=== PATIENT | female | born 1940 | race Caucasian/White ===

== ENCOUNTER 2021-08-24 08:19 | Outpatient (CLI) | payer MEDICARE, SELFPAY ==
[2021-08-24 09:57] LABS: Influenza A QL RT-PCR Negative (Negative); Influenza B QL RT-PCR Negative (Negative); SARS-CoV-2 RNA PCR Negative (Negative)
== END 2021-08-24 08:20 | disposition home or self-care (01) ==
LOC: CHSLAB 08:22
PROVIDERS: PCP Internal Medicine; Visit Provider Internal Medicine
DX: R05.9 Cough, unspecified (principal); J02.9 Acute pharyngitis, unspecified; Z20.822 Contact with and (suspected) exposure to COVID-19
CPT/HCPCS: 87502; C9803; U0003; U0005

== ENCOUNTER 2021-08-27 07:17 | Outpatient (CLI) | payer MEDICARE, SELFPAY ==
--- NOTE | ~2021-08-27 | XR_ITS ---
EXAMINATION: XR chest 2V DATE: 08/27/2021 07:53 INDICATION: Congestive heart failure, cough TECHNIQUE: AP and lateral views of the chest are obtained. COMPARISON: 09/12/2019 FINDINGS: The lungs are free of acute opacities. Surgical staple line is noted in the right lung with some volume loss of the right hemithorax. There is no pleural effusion or pneumothorax. The cardiome diastinal silhouette is normal. There is moderate thoracic spondylosis. IMPRESSION: 1. No acute cardiopulmonary abnormality. Reviewed, dictated and finalized at location [facility] [employer]
== END 2021-08-27 07:18 | disposition home or self-care (01) ==
LOC: CHSIMG 07:20
PROVIDERS: PCP Internal Medicine; Visit Provider Internal Medicine
DX: R63.4 Abnormal weight loss (principal); E11.9 Type 2 diabetes mellitus without complications; I50.9 Heart failure, unspecified; R05.9 Cough, unspecified
CPT/HCPCS: 71046

== ENCOUNTER 2022-09-24 05:15 | Observation (INO) | payer MEDICARE, SELFPAY ==
[2022-09-24] VITALS (11 sets, daily range): BP systolic 112–133; BP diastolic 52–92; PULSE 60–121; RESP 14–24; TEMP 35.7–37.2; O2SAT 89–96; BMI 25.4
--- NOTE | ~2022-09-24 | XR_ITS ---
Portable chest x-ray Comparison: 08/27/2021 Clinical History: Cough Findings: There is minimal asymmetric haziness at the right lung base. Left lung clear. Cardiomedia stinal silhouette is stable. Bones and soft tissues are unremarkable. Impression: Minimal haziness right lung base. Correlate for pneumonia or atelectatic change. Reviewed, dictated and finalized at [facility]. TAL MACHINING COORDINATOR Impression: Minimal haziness right lung base. Correlate for pneumonia or atelectatic change .
[2022-09-24] MEDS: SODIUM CHLORIDE 0.9% IV 1,000 ML 150 ML IV CONT (05:15)
[2022-09-24 05:53] LABS: Basophils Absolute Auto 0.01 K/mm3 (0.00-0.10); Basophils Percent Auto 0.1 % (0.0-1.0); Hematocrit 41.1 % (35.0-42.0); Hemoglobin 12.8 g/dL (11.7-13.8); Immature Granulocyte Percent A 0.8 % (0.0-0.0); Lymphocytes Absolute Auto 1.09 K/mm3 (1.10-4.50); Lymphocytes Percent Auto 8.3 % (18.0-42.0); Mean Corpuscular HGB Conc 31.1 g/dL (32.0-36.0); Mean Corpuscular Hemoglobin 29.7 pg (27.0-31.0); Mean Corpuscular Volume 95.4 fL (78.0-102.0); Mean Platelet Volume 10.2 fl (9.2-11.8); Monocytes Absolute Auto 1.26 K/mm3 (0.10-0.90); Monocytes Percent Auto 9.6 % (2.0-11.0); Neutrophils Absolute Auto 10.6 K/mm3 (1.7-7.2); Neutrophils Percent Auto 81.2 % (50.0-70.0); Platelet Count Result 311 K/mm3 (150-420); Red Blood Count 4.31 M/mm3 (4.20-5.40); White Blood Count 13.1 K/mm3 (4.8-10.8)
--- NOTE | 2022-09-24 05:54 | ED.URI ---
HPI - URI/Sore Throat General Chief Complaint: Upper Respiratory Infection Stated Complaint: SOB Time Seen by Provider: 09/24/22 05:54 Source: patient, EMS and RN notes reviewed Mode of arrival: EMS Limitations: no limitations History of Present Illness MD elicited complaint: cough Onset (ago): day(s) (4) Consistency: constant Severity: moderate Description of mucous: yellow and green Able to tolerate fluids by mouth: Yes Exacerbating factors: other ( coughing) Relieving factors: nothing Associated symptoms: denies other symptoms Treatments prior to arrival: none Related Data Home Medications Medication Instructions Recorded Confirmed cefuroxime axetil 250 mg tablet 250 mg PO BID 09/24/22 09/24/22 insulin glargine 100 unit/mL 15 unit subcut HS 09/24/22 09/24/22 subcutaneous solution (Lantus U-100 Insulin) montelukast 10 mg tablet 10 mg PO HS 09/24/22 09/24/22 sotalol 80 mg tablet 40 mg PO BID 09/24/22 09/24/22 spironolactone 25 1 tablet PO DAILY 09/24/22 09/24/22 mg-hydrochlorothiazide 25 mg tablet verapamil 240 mg tablet,extended 240 mg PO DAILY 09/24/22 09/24/22 release Allergies Allergy/AdvReac Type Severity Reaction Status Date / Time amoxicillin Allergy Unknown Verified 07/31/17 14:24 chlorthalidone Allergy Unknown Verified 07/31/17 14:25 digoxin Allergy Unknown Verified 07/31/17 14:24 loratadine Allergy Unknown Verified 07/31/17 14:25 Review of Systems Review of Systems: All systems reviewed & are unremarkable except as noted in HPI and below Genitourinary: Genitourinary: Reports urinary incontinence ( dribbling) [facility] Past Medical History Medical History (Updated 09/24/22 @ 07:07 by Roshan Raymond MD) Atrial fibrillation Congestive heart failure Type 2 diabetes mellitus with insulin therapy Family History Family History (Updated 10/30/17 @ 10:33 by DOCTOR UNKNOWN) Father Family history of emphysema Social History Social History Smoking status: Never smoker Exam Const: General: no acute distress, alert and ill appearing chronically Nutritional Appearance: obese centrally obese Orientation/consciousness: patient oriented x3 Limitations: no limitations HENMT: Head: normal to inspection Ears: external ears normal Face/Nose/Sinus: Normal external nose present Face and sinus: normal facial exam Mouth: Yes moist mucous membranes Eyes: Conjunctivae: conjunctivae normal Pupils: Equal, round and reactive pupils present EOM: EOMs intact bilaterally Neck: Neck: normal visual inspection Resp: Effort & Inspection: normal respiratory effort Auscultation: rhonchi throughout Cardio: Rate: regular rate Rhythm: abnormal rhythm irregularly irregular GI: GI Palp: Yes Soft to palpation and No Tenderness to palpation present (GI) Auscultation: normal bowel sounds Back/Spine/Pelvis: Cervical Spine: cervical ROM normal Thoracic/Lumbar Spine: thoraco-lumbar ROM normal Skin: General skin exam: normal color Rashes: no rashes Neuro: General: patient oriented x3, moves all extremities, no focal motor deficits and CN's II-XI intact bilaterally Speech: normal speech Extrem: General: edema bilateral ( 1+ to mid cabezas) Psych: Mental Status: mental status grossly normal Affect: normal affect Attitude: cooperative Course Course Emergency Course: I discussed the case with Jesse Martínez APN who agreed with admission. Vital Signs Vital signs: Vital Signs Temperature 37.2 C 09/24/22 05:46 Pulse Rate 98 09/24/22 05:46 Respiratory Rate 24 H 09/24/22 05:46 Blood Pressure 132/88 09/24/22 05:46 Pulse Oximetry 89 L 09/24/22 05:46 Oxygen Delivery Room Air 09/24/22 05:46 Temperature 37.2 C 09/24/22 05:46 Pulse Rate 98 09/24/22 05:46 Respiratory Rate 24 H 09/24/22 05:46 Blood Pressure 132/88 09/24/22 05:46 Pulse Oximetry 89 L 09/24/22 05:46 Oxygen Delivery Room Air 09/24/22 05:46
[2022-09-24 05:55] LABS: Add Urine Microscopic? YES; Appearance Urine Clear (Clear); Bilirubin Urine Negative (Negative); Blood Urine Negative (Negative); Color Urine Yellow (Yellow); Glucose Urine UA Negative (Negative); Ketones Urine Negative (Negative); Leukocyte Esterase Ur Trace LEU/UL (Negative); Nitrate Urine Negative (Negative); Protein Urine 2+ (Negative)
--- NOTE | 2022-09-24 06:01 | PC.NURSE ---
SPOUSE STATES WILL NEED GET INFO FROM DR PARKS IF NOT IN CHART
[2022-09-24 06:05] LABS: RBC Urine 0-2 /hpf (0-2); Squamous Epithelial Cell Urine Few /hpf (Few)
[2022-09-24 06:06] LABS: Bacteria Urine 2+ /hpf
[2022-09-24 06:22] LABS: Alanine Aminotransferase 17 U/L (14-59); Albumin Level 2.9 g/dL (3.4-5.0); Alkaline Phosphatase 49 U/L (46-116); Anion Gap 2 mmol/L (8-16); Aspartate Amino Transferase 14 U/L (15-37); Bilirubin,Total 0.9 mg/dL (0.00-1.00); Blood Urea Nitrogen 45 mg/dL (7-18); Calcium 8.5 mg/dL (8.5-10.1); Carbon Dioxide 35 mmol/L (21-32); Chloride 101 mmol/L (98-108); Estimated CRCL calculation 28 ml/min; Estimated Glomerular Filt Rate 44; Glucose 163 mg/dL (70-99); Osmolality Calculated 301 mOsm/kg (285-295); Potassium 4.1 mmol/L (3.5-5.1); Sodium 138 mmol/L (136-145); Total Protein 7.8 g/dL (6.4-8.2)
[2022-09-24 06:23] LABS: NT Pro B Type Natriuretic Pept 2806 pg/mL (0-450)
[2022-09-24 06:33] LABS: Influenza A QL RT-PCR Positive (Negative); Influenza B QL RT-PCR Negative (Negative); SARS-CoV-2 RNA PCR Negative (Negative)
[2022-09-24 06:35] LABS: RSV RNA, RT-PCR Negative (Negative)
[2022-09-24 08:14] LABS: Basophils Absolute Auto 0.01 K/mm3 (0.00-0.10); Basophils Percent Auto 0.1 % (0.0-1.0); Hematocrit 41.7 % (35.0-42.0); Hemoglobin 13.2 g/dL (11.7-13.8); Immature Granulocyte Absolute 0.07 K/mm3 (0.00-0.00); Immature Granulocyte Percent A 0.5 % (0.0-0.0); Lymphocytes Absolute Auto 1.03 K/mm3 (1.10-4.50); Mean Corpuscular HGB Conc 31.7 g/dL (32.0-36.0); Mean Corpuscular Hemoglobin 30.3 pg (27.0-31.0); Mean Corpuscular Volume 95.9 fL (78.0-102.0); Mean Platelet Volume 10.5 fl (9.2-11.8); Monocytes Absolute Auto 1.35 K/mm3 (0.10-0.90); Monocytes Percent Auto 9.2 % (2.0-11.0); Neutrophils Absolute Auto 12.2 K/mm3 (1.7-7.2); Neutrophils Percent Auto 83.2 % (50.0-70.0); Platelet Count Result 306 K/mm3 (150-420); Red Blood Count 4.35 M/mm3 (4.20-5.40); Red Cell Distribution Width 13.1 % (11.6-14.4); White Blood Count 14.7 K/mm3 (4.8-10.8)
[2022-09-24 08:27] LABS: Anion Gap 3 mmol/L (8-16); Blood Urea Nitrogen 43 mg/dL (7-18); Calcium 8.7 mg/dL (8.5-10.1); Carbon Dioxide 36 mmol/L (21-32); Chloride 100 mmol/L (98-108); Estimated CRCL calculation 29 ml/min; Estimated Glomerular Filt Rate 46; Glucose 151 mg/dL (70-99); Osmolality Calculated 301 mOsm/kg (285-295); Potassium 3.8 mmol/L (3.5-5.1); Sodium 139 mmol/L (136-145)
--- NOTE | 2022-09-24 08:45 | PC.NURSE ---
Pt to room 209 per stretcher with cardiac monitor technician. To bed with moderate assist of 2. Patel draining clear, so urine. O2 on at 2L. Pt A&Ox3. States she's weak and hasn't been eating the last few days. States she isn't hungry. NPC noted, lungs diminished. Pt denies pain or SOB. Skin intact, coccyx reddened. Oriented to room. Reminded to call with needs and not to get up without assist. Call stoner in reach. Bed rails up x3.
[2022-09-24] MEDS: FUROSEMIDE INJ 40 MG/4 ML VIAL IV PUSH (09:30)
[2022-09-24] MEDS: hydroCHLOROthiazide 25 MG TABLET PO (09:30)
[2022-09-24] MEDS: VERAPAMIL HCL ER 120 MG TABLET 240 MG PO (09:30)
[2022-09-24] MEDS: SPIRONOLACTONE 25 MG TABLET PO (09:30)
[2022-09-24] MEDS: SOTALOL HCL 40 MG TABLET PO ×2 (09:30→21:12)
--- NOTE | 2022-09-24 10:23 | PC.NURSE ---
Physical therapy working with patient.
[2022-09-24 11:51] LABS: Glucose Point of Care 344 mg/dl (65-105)
--- NOTE | 2022-09-24 16:18 | PC.NURSE ---
Patient in bed with HOB elevated. No resp distress or c/o pain observed. Patient spoke on phone to daughter. Patient requested pudding on her supper tray. Dietary notifie.
[2022-09-24 16:28] LABS: Glucose Point of Care 159 mg/dl (65-105)
--- NOTE | 2022-09-24 16:35 | PC.NURSE ---
Bedside glucose 159, no sliding scale insulin needed.
[2022-09-24 21:05] LABS: Glucose Point of Care 140 mg/dl (65-105)
[2022-09-24] MEDS: INSULIN GLARGINE (*BKC) 100 UNITS/ML 15 UNITS SUB-Q (21:10)
[2022-09-24] MEDS: MONTELUKAST SODIUM 10 MG TABLET PO (21:11)
--- NOTE | 2022-09-24 21:58 | PC.NURSE ---
HS care completed. Patient positioned in bed, refused to turn to either side. Buttocks and abd folds cleaned and creams put on appropriate areas. Able to take medications without difficulty. Patient encouraged to take a few more sips of water after medication was taken. Patel care provided and cath emptied. IV site to right arm without redness, swelling, drainage. Dressing over insertion site clean, dry, intact. HOB elevated and knees elevated. Patient has no signs of resp distress or pain. O2 @ 2LPM/NC intact. Patient removes at times and nurse reminds to leave on. Patient instructed on bedside glucose monitoring and sliding scale insulin. Patient also instructed on Influenza A. Patient remains on isolation for influenza.
[2022-09-24] MEDS: SODIUM CHLORIDE 0.9% IV 1,000 ML 100 ML IV CONT (22:30)
[2022-09-25] VITALS (10 sets, daily range): BP systolic 108–126; BP diastolic 50–75; PULSE 69–100; RESP 16–20; TEMP 36.1–36.6; O2SAT 91–97
--- NOTE | 2022-09-25 00:15 | PC.NURSE ---
Pt resting quietly in bed and IV fluid continues to infuse as ordered. Patel is patent and draining clear, so urine and oxygen remains on at 2 liters per nasal cannula. SAO2 is 96% and pt doesnt voice any c/o shortness of breath. No signs of respiratory distress noted.
--- NOTE | 2022-09-25 02:19 | PC.NURSE ---
Pt dozing quietly; no signs of respiratory distress noted.
--- NOTE | 2022-09-25 03:10 | PC.NURSE ---
Pt called and asked to be repositioned. Pt repositioned to comfort.
--- NOTE | 2022-09-25 04:04 | PC.NURSE ---
Pt positioned to comfort; IV fluid continues to infuse as ordered.
[2022-09-25 05:26] LABS: Hematocrit 39.9 % (35.0-42.0); Hemoglobin 12.4 g/dL (11.7-13.8); Mean Corpuscular HGB Conc 31.1 g/dL (32.0-36.0); Mean Corpuscular Hemoglobin 30.2 pg (27.0-31.0); Mean Corpuscular Volume 97.3 fL (78.0-102.0); Mean Platelet Volume 10.5 fl (9.2-11.8); Platelet Count Result 260 K/mm3 (150-420); Red Cell Distribution Width 13.1 % (11.6-14.4); White Blood Count 12.5 K/mm3 (4.8-10.8)
[2022-09-25 05:35] LABS: Anion Gap 2 mmol/L (8-16); Blood Urea Nitrogen 32 mg/dL (7-18); Calcium 8.4 mg/dL (8.5-10.1); Carbon Dioxide 38 mmol/L (21-32); Chloride 101 mmol/L (98-108); Estimated CRCL calculation 29 ml/min; Estimated Glomerular Filt Rate 48; Glucose 112 mg/dL (70-99); Osmolality Calculated 299 mOsm/kg (285-295); Potassium 3.4 mmol/L (3.5-5.1); Sodium 141 mmol/L (136-145)
--- NOTE | 2022-09-25 06:29 | PC.NURSE ---
Pt assisted with positioning to comfort.
[2022-09-25] MEDS: SODIUM CHLORIDE 0.9% IV 1,000 ML 100 ML IV CONT ×2 (08:16→19:44)
[2022-09-25] MEDS: FUROSEMIDE INJ 20 MG/2 ML VIAL IV PUSH (08:59)
[2022-09-25] MEDS: hydroCHLOROthiazide 25 MG TABLET PO (09:00)
[2022-09-25] MEDS: VERAPAMIL HCL ER 120 MG TABLET 240 MG PO (09:00)
[2022-09-25] MEDS: SPIRONOLACTONE 25 MG TABLET PO (09:00)
[2022-09-25] MEDS: SOTALOL HCL 40 MG TABLET PO ×2 (09:00→20:04)
[2022-09-25] MEDS: POTASSIUM CHLORIDE 10 MEQ TABLET PO (09:02)
[2022-09-25 11:48] LABS: Glucose Point of Care 420 mg/dl (65-105)
--- NOTE | 2022-09-25 15:09 | PM.IMHP ---
H&P: HPI History of Present Illness Date/Time: 09/25/22 0900 Chief Complaint: shortness of breath Narrative: This is a 82-year-old female who presented to the hospital with 4 days of coughing up yellow-greenish sputum not feeling very well filling short of breath was found to be satting 89% on room air with a respiratory rate of 24 heart rate of 98 patient was found to have some pneumonia as well as influenza. Patient has a past medical history of hypokalemia congestive heart failure, hyponatremia patient required some oxygen at 2 L which brought her up to 94% she was started on azithromycin and Rocephin for urinary tract infection as well patient has been feeling weak has not been eating has not gotten out of bed and she normally is cyst herself her was unable to get her up off the couch at this time feels like she needs some therapy visit not able to take care of her at thistime. Patient's labs was glucose 163, potassium 4.1, sodium 138, BUN 45, creatinine 1.18, hemoglobin 14, platelets 306 patient was also started on some IV fluids for some dehydration. Review of Systems Review of Systems: weakness, failure to thrive, Shortness of breath All systems reviewed & are unremarkable except as noted in HPI and below PMFSH Past Medical History Medical History (Updated 09/30/22 @ 09:50 by Shira Martínez NP) Atrial fibrillation Congestive heart failure Hypokalemia Hyponatremia Malaise and fatigue Type 2 diabetes mellitus with insulin therapy Weakness Family History Family History Father Family history of emphysema Social History Social History Smoking status: Never smoker Second hand tobacco smoke exposure: No Alcohol intake: never Substance use: never Substance use type: does not use Lack of Transportation: No Lack of Food: Never True Current Housing: I Have Housing Concerned About Future Housing: No Difficulty Paying Gas/Electric Bills: No Difficulty Paying for Meds: No Currently Unemployed: No Education: Grade School Difficulty w/ Childcare or Family Care: No Gender identity (if verbalized by the patient): Female Sexual Orientation (if Verbalized by the Patient): Straight or Heterosexual Spiritual care concerns: No Meds Home Medications and Allergies Home Medications Medication Instructions Recorded Confirmed Type cefuroxime axetil 250 mg tablet 250 mg PO BID 09/24/22 09/24/22 History insulin glargine 100 unit/mL 15 unit subcut HS 09/24/22 09/24/22 History subcutaneous solution (Lantus U-100 Insulin) montelukast 10 mg tablet 10 mg PO HS 09/24/22 09/24/22 History sotalol 80 mg tablet 40 mg PO BID 09/24/22 09/24/22 History spironolactone 25 1 tablet PO DAILY 09/24/22 09/24/22 History mg-hydrochlorothiazide 25 mg tablet verapamil 240 mg tablet,extended 240 mg PO DAILY 09/24/22 09/24/22 History release Allergies Allergy/AdvReac Type Severity Reaction Status Date / Time amoxicillin Allergy Unknown Verified 07/31/17 14:24 chlorthalidone Allergy Unknown Verified 07/31/17 14:25 digoxin Allergy Unknown Verified 07/31/17 14:24 loratadine Allergy Unknown Verified 07/31/17 14:25 Vital Signs Vital Signs - 24 hr 09/24/22 16:00 09/24/22 21:12 09/24/22 20:00 Temperature 97.9 F 97.4 F L Pulse Rate 60 62 88 Respiratory Rate 14 Blood Pressure 120/59 L 124/71 Pulse Oximetry 90 91 Oxygen Delivery Nasal Cannula Nasal Cannula Oxygen Flow Rate 2 2 09/25/22 00:00 09/25/22 04:00 09/25/22 09:00 Temperature 97.6 F 97.0 F L Pulse Rate 80 92 100 Respiratory Rate 20 20 Blood Pressure 126/72 113/75 Pulse Oximetry 96 95 Oxygen Delivery Nasal Cannula Nasal Cannula Oxygen Flow Rate 2 2 09/25/22 08:00 09/25/22 12:00 Temperature 96.9 F L 98 F Pulse Rate 100 82 Respiratory Rate 17 17 Blood Pressure 115/50 L 120/54 L Pulse Ox
[2022-09-25] MEDS: BENZONATATE 100 MG CAPSULE PO ×2 (17:11→21:33)
[2022-09-25] MEDS: DEXTROSE 50% 25 GM/50 ML SYRINGE IV PUSH (17:14)
[2022-09-25 17:16] LABS: Glucose Point of Care 37 mg/dl (65-105)
[2022-09-25 17:39] LABS: Glucose Point of Care 116 mg/dl (65-105)
[2022-09-25] MEDS: MONTELUKAST SODIUM 10 MG TABLET PO (20:04)
[2022-09-25] MEDS: INSULIN GLARGINE (*BKC) 100 UNITS/ML 15 UNITS SUB-Q (20:07)
[2022-09-25 20:08] LABS: Glucose Point of Care 200 mg/dl (65-105)
[2022-09-26 05:17] LABS: Hematocrit 36.6 % (35.0-42.0); Hemoglobin 10.9 g/dL (11.7-13.8); Mean Corpuscular HGB Conc 29.8 g/dL (32.0-36.0); Mean Corpuscular Hemoglobin 28.7 pg (27.0-31.0); Mean Corpuscular Volume 96.3 fL (78.0-102.0); Mean Platelet Volume 10.2 fl (9.2-11.8); Platelet Count Result 216 K/mm3 (150-420); Red Cell Distribution Width 13.1 % (11.6-14.4)
[2022-09-26 05:33] LABS: Anion Gap 2 mmol/L (8-16); Blood Urea Nitrogen 22 mg/dL (7-18); Calcium 7.8 mg/dL (8.5-10.1); Carbon Dioxide 37 mmol/L (21-32); Chloride 98 mmol/L (98-108); Estimated CRCL calculation 34 ml/min; Estimated Glomerular Filt Rate 57; Glucose 91 mg/dL (70-99); Osmolality Calculated 287 mOsm/kg (285-295); Potassium 3.4 mmol/L (3.5-5.1); Sodium 137 mmol/L (136-145)
[2022-09-26] MEDS: BENZONATATE 100 MG CAPSULE PO ×3 (05:33→21:33)
[2022-09-26] MEDS: SODIUM CHLORIDE 0.9% IV 1,000 ML 100 ML IV CONT ×2 (05:36→17:57)
[2022-09-26 06:49] VITALS: O2SAT 94
[2022-09-26 08:00] VITALS: BP 101/38; PULSE 102; RESP 17; TEMP 35.8; O2SAT 94
[2022-09-26 08:30] VITALS: O2SAT 92
[2022-09-26] MEDS: SPIRONOLACTONE 25 MG TABLET PO (09:28)
[2022-09-26] MEDS: VERAPAMIL HCL ER 120 MG TABLET 240 MG PO (09:28)
[2022-09-26] MEDS: POTASSIUM CHLORIDE 10 MEQ TABLET PO (09:28)
[2022-09-26] MEDS: hydroCHLOROthiazide 25 MG TABLET PO (09:28)
[2022-09-26 09:29] VITALS: PULSE 102
[2022-09-26] MEDS: FUROSEMIDE INJ 20 MG/2 ML VIAL IV PUSH (09:29)
[2022-09-26] MEDS: SOTALOL HCL 40 MG TABLET PO ×2 (09:29→21:33)
--- NOTE | 2022-09-26 12:00 | PC.NURSE ---
Pt requested to be set up in the bed and pillow adjusted. This nurse encouraged pt to adjust her own pillow and she did so with reluctance. Pt was asked about getting up in the chair this afternoon and she responded with I don't feel like it, I will start getting up when I feel better. Pt was educated on lack of mobility and respiratory issues along with mobility issues.
[2022-09-26 12:03] LABS: Glucose Point of Care 366 mg/dl (65-105)
--- NOTE | 2022-09-26 14:07 | WPDPN ---
Progress Note: A&P Assessment and Plan (1) Hypoxia: Code(s): R09.02 - Hypoxemia Status: Acute Assessment and Plan: oxygen per nc mointor pulse ox (2) Influenza A: Code(s): J10.1 - Influenza due to other identified influenza virus with other respiratory manifestations Status: Acute Assessment and Plan: weakness PT/OT IV steroids Tamiflu not indicated (3) Acute UTI: Code(s): N39.0 - Urinary tract infection, site not specified Status: Acute Assessment and Plan: IV anibiotic IVF Patel catheter adequate intake and output (4) Hypokalemia: Code(s): E87.6 - Hypokalemia Status: Acute Assessment and Plan: Monitor and replenish electrolytes (5) Pain initiated by coughing: Code(s): R52 - Pain, unspecified Status: Acute Assessment and Plan: Continue to monitor for pain PRn pain medicatin Subjective Date/time seen: 09/26/22 14:07 Interval history: Patient is eating slightly better but not very active or able to get out of bed due to lethargy . Patient still remains on oxygen and discussion has been made about going to assisted at this time as patient is not able to be cared for at home due to illness. Exam Narrative: GENERALPale-appearing, well-nourished, and in no acute distress. HEAD:Normocephalic, atraumatic. EYES: PERRLA and EOMI. ENT: Nares clear, no rhinorrhea or epistaxis. Mucous membranes moist. CHEST: Clear to dimished auscultation. No respiratory distress. HEART: Regular rate and rhythm. Normal peripheral pulses. ABDOMEN: Soft, nontender, nondistended, normal active bowel sounds. EXTREMITIES: Normal range of motion. No edema. weak SKIN: Warm, dry, no rash. NEURO: No focal deficits. Alert and oriented x3. Objective Data Vital Signs Vital Signs: Vital Signs - 24 hr 09/25/22 16:00 09/25/22 20:04 09/25/22 20:00 Temperature 97.8 F Pulse Rate 88 69 69 Respiratory Rate 18 18 Blood Pressure 108/51 L Pulse Oximetry 92 92 Oxygen Delivery Nasal Cannula Nasal Cannula Oxygen Flow Rate 2 2 09/25/22 20:00 09/25/22 23:53 09/26/22 09:29 Temperature 97.6 F 97.6 F Pulse Rate 69 69 102 H Respiratory Rate 16 16 Blood Pressure 113/63 113/63 Pulse Oximetry 97 97 Oxygen Delivery Nasal Cannula Nasal Cannula Oxygen Flow Rate 2 2 09/26/22 08:00 09/26/22 08:30 09/26/22 08:00 Temperature 96.4 F L Pulse Rate 102 H Respiratory Rate 17 Blood Pressure 101/38 L Pulse Oximetry 94 92 94 Oxygen Delivery Nasal Cannula Nasal Cannula Nasal Cannula Oxygen Flow Rate 2 1 2 Intake/Output Intake/Output: Intake & Output 09/23/22 09/24/22 09/25/22 09/26/22 23:59 23:59 23:59 23:59 Intake Total 1705 3256.667 2030 Output Total 3125 1025 350 Balance -1420 2231.667 1680 Meds/Results Medications: Active Medications Generic Name Dose Route Start Last Admin Trade Name Freq PRN Reason Stop Dose Admin Acetaminophen 650 mg 09/24/22 07:45 Acetaminophen 325 Mg Tablet PO Q4H PRN Mild Pain (1-3) or Fever Hydrocodone Bitart/Acetaminophen 1 tab 09/24/22 07:45 Hydrocodone/Acetaminophen (*Crx) 5-325 Mg Tablet PO Q4H PRN Moderate Pain (4-6) Benzonatate 100 mg 09/25/22 22:00 09/26/22 05:33 Benzonatate 100 Mg Capsule PO 100 mg Q8HR FRANDY Administration Dextrose 12.5 gm 09/24/22 09:40 09/25/22 17:14 Dextrose 50% 25 Gm/50 Ml Syringe IV PUSH 12.5 gm PRN PRN Administration Hypoglycemia Protocol Furosemide 20 mg 09/25/22 09:00 09/26/22 09:29 Furosemide Inj 20 Mg/2 Ml Vial IV PUSH 20 mg DAILY FRANDY Administration Glucagon 1 mg 09/24/22 09:40 Glucagon For Inj 1 Mg Vial IM PRN PRN Hypoglycemia Protocol Glucose 15 gm 09/24/22 09:40 Glucose Oral Gel 15 Gm Of Glucse In 37.5 Gm Tube PO PRN PRN Hypoglycemia Protocol Hydrochlorothiazide 25 mg 09/24/22 09:00 09/26/22 09:
[2022-09-26 16:00] VITALS: BP 124/81; PULSE 80; RESP 17; TEMP 36.6; O2SAT 94
--- NOTE | 2022-09-26 16:25 | PC.NURSE ---
Report given to Amina at [facility].
[2022-09-26 17:04] LABS: Glucose Point of Care 71 mg/dl (65-105)
[2022-09-26 21:08] LABS: Glucose Point of Care 99 mg/dl (65-105)
[2022-09-26 21:33] VITALS: PULSE 74
[2022-09-26] MEDS: MONTELUKAST SODIUM 10 MG TABLET PO (21:33)
[2022-09-27] VITALS (9 sets, daily range): BP systolic 107–126; BP diastolic 58–80; PULSE 61–107; RESP 16–18; TEMP 36.3–36.4; O2SAT 87–96
[2022-09-27] MEDS: SODIUM CHLORIDE 0.9% IV 1,000 ML 100 ML IV CONT (02:55)
[2022-09-27 05:28] LABS: Hemoglobin 11.1 g/dL (11.7-13.8); Mean Corpuscular HGB Conc 30.8 g/dL (32.0-36.0); Mean Corpuscular Hemoglobin 29.8 pg (27.0-31.0); Mean Corpuscular Volume 96.5 fL (78.0-102.0); Mean Platelet Volume 10.4 fl (9.2-11.8); Platelet Count Result 226 K/mm3 (150-420); Red Blood Count 3.73 M/mm3 (4.20-5.40); Red Cell Distribution Width 13.2 % (11.6-14.4); White Blood Count 8.6 K/mm3 (4.8-10.8)
[2022-09-27 05:41] LABS: Anion Gap 3 mmol/L (8-16); Blood Urea Nitrogen 14 mg/dL (7-18); Calcium 7.6 mg/dL (8.5-10.1); Carbon Dioxide 34 mmol/L (21-32); Chloride 100 mmol/L (98-108); Estimated CRCL calculation 37 ml/min; Estimated Glomerular Filt Rate > 60; Glucose 84 mg/dL (70-99); Osmolality Calculated 283 mOsm/kg (285-295); Potassium 3.5 mmol/L (3.5-5.1); Sodium 137 mmol/L (136-145)
[2022-09-27] MEDS: BENZONATATE 100 MG CAPSULE PO ×3 (06:37→20:58)
[2022-09-27] MEDS: FUROSEMIDE INJ 20 MG/2 ML VIAL IV PUSH (07:59)
[2022-09-27 08:03] LABS: Glucose Point of Care 83 mg/dl (65-105)
[2022-09-27] MEDS: SOTALOL HCL 40 MG TABLET PO ×2 (08:15→20:58)
[2022-09-27] MEDS: POTASSIUM CHLORIDE 10 MEQ TABLET PO (08:15)
[2022-09-27] MEDS: hydroCHLOROthiazide 25 MG TABLET PO (08:15)
[2022-09-27] MEDS: VERAPAMIL HCL ER 120 MG TABLET 240 MG PO (08:15)
[2022-09-27] MEDS: SPIRONOLACTONE 25 MG TABLET PO (08:15)
--- NOTE | 2022-09-27 09:47 | WPDPN ---
Progress Note: A&P Assessment and Plan (1) Hypoxia: Code(s): R09.02 - Hypoxemia Status: Acute Assessment and Plan: oxygen per nc mointor pulse ox denies shortness of breath Wean from oxygen (2) Influenza A: Code(s): J10.1 - Influenza due to other identified influenza virus with other respiratory manifestations Status: Acute Assessment and Plan: weakness PT/OT IV steroids Tamiflu not indicated onset to long ago (3) Acute UTI: Code(s): N39.0 - Urinary tract infection, site not specified Status: Acute Assessment and Plan: IV anibiotic IVF Patel catheter adequate intake and output DC IVF DC IV antibiotics today this is day 4 (4) Hypokalemia: Code(s): E87.6 - Hypokalemia Status: Acute Assessment and Plan: Monitor and replenish electrolytes resolved (5) Pain initiated by coughing: Code(s): R52 - Pain, unspecified Status: Acute Assessment and Plan: Continue to monitor for pain PRn pain medicatin (6) Weakness: Code(s): R53.1 - Weakness Status: Acute Assessment and Plan: PT/OT evaluate and treat refuses to get out of bed (7) Malaise and fatigue: Code(s): R53.81 - Other malaise; R53.83 - Other fatigue Status: Acute Assessment and Plan: Refuses to get out of bed questioned patient on depression in which she denies may be lingering from influenza. Subjective Date/time seen: 09/27/22 09:47 Interval history: Patient continues to refuse to get out of bed and informed me she has been doing bed exercises but is to weak to get out of bed. I discussed having therapy help but she continues to refuse and decline assistance. Patient is eating a lot better and drinking I will discontinue IV fluids plan continue with oral intake and we will plan for her to go to correction on Thursday. I did discuss with patient that she would need to go to correction if she continued to refuse to participate with therapy. Patient informed me that she could not get up due to pain and the nurse walks in while I was in the room and patient denies having pain. When asked about the pain I remind her of what she informed me of and she states that her legs feel heavy and she is not in need of pain medication Exam Narrative: GENERALPale-appearing, well-nourished, and in no acute distress. HEAD:Normocephalic, atraumatic. EYES: PERRLA and EOMI. ENT: Nares clear, no rhinorrhea or epistaxis. Mucous membranes moist. CHEST: Clear to dimished auscultation. No respiratory distress. HEART: Regular rate and rhythm. Normal peripheral pulses. ABDOMEN: Soft, nontender, nondistended, normal active bowel sounds. EXTREMITIES: Normal range of motion. No edema. weak SKIN: Warm, dry, no rash. NEURO: No focal deficits. Alert and oriented x3. Objective Data Vital Signs Vital Signs: Vital Signs - 24 hr 09/26/22 16:00 09/26/22 21:33 09/27/22 00:00 Temperature 98 F 97.3 F L Pulse Rate 80 74 61 Respiratory Rate 17 18 Blood Pressure 124/81 126/58 L Pulse Oximetry 94 93 Oxygen Delivery Nasal Cannula High Flow Nasal Cannula Oxygen Flow Rate 1 1 09/27/22 08:00 09/27/22 08:15 Temperature 97.6 F Pulse Rate 71 76 Respiratory Rate 16 Blood Pressure 107/80 Pulse Oximetry 96 Oxygen Delivery Nasal Cannula Oxygen Flow Rate 1 Intake/Output Intake/Output: Intake & Output 09/24/22 09/25/22 09/26/22 09/27/22 23:59 23:59 23:59 23:59 Intake Total 1705 3256.667 3430 1336.667 Output Total 3125 1025 1650 475 Balance -1420 2231.667 1780 861.667 Meds/Results Medications: Active Medications Generic Name Dose Route Start Last Admin Trade Name Freq PRN Reason Stop Dose Admin Acetaminophen 650 mg 09/24/22 07:45 Acetaminophen 325 Mg Tablet PO Q4H PRN Mild Pain (1-3) or Fever Hydrocodone Bitart/Acetaminophen 1 tab 09/24/22 07:45 Hydrocodone/Acetaminophen (*Crx) 5-325
--- NOTE | 2022-09-27 09:56 | PC.NURSE ---
TRAY FILLER discontinued fluids
--- NOTE | 2022-09-27 11:37 | PC.NURSE ---
patient on room air for approximately 2hours. Up to bedside commode during that time. Patient requested 02 be put on. SPO2 87% and pulse 107. Put back on 1 liter. SPO2 up to 91% and HR down to 85
[2022-09-27 11:54] LABS: Glucose Point of Care 245 mg/dl (65-105)
[2022-09-27 16:48] LABS: Glucose Point of Care 118 mg/dl (65-105)
[2022-09-27] MEDS: MONTELUKAST SODIUM 10 MG TABLET PO (20:58)
[2022-09-27] MEDS: INSULIN GLARGINE (*BKC) 100 UNITS/ML 15 UNITS SUB-Q (21:01)
[2022-09-27 21:03] LABS: Glucose Point of Care 111 mg/dl (65-105)
[2022-09-28] VITALS (8 sets, daily range): BP systolic 108–128; BP diastolic 57–77; PULSE 78–98; RESP 16; TEMP 36.2–36.6; O2SAT 94–95
[2022-09-28] MEDS: BENZONATATE 100 MG CAPSULE PO ×3 (05:25→21:06)
[2022-09-28 07:41] LABS: Glucose Point of Care 77 mg/dl (65-105)
[2022-09-28] MEDS: FUROSEMIDE INJ 20 MG/2 ML VIAL IV PUSH (08:18)
[2022-09-28] MEDS: SOTALOL HCL 40 MG TABLET PO ×2 (08:19→21:06)
[2022-09-28] MEDS: POTASSIUM CHLORIDE 10 MEQ TABLET PO (08:20)
[2022-09-28] MEDS: SPIRONOLACTONE 25 MG TABLET PO (08:21)
[2022-09-28] MEDS: hydroCHLOROthiazide 25 MG TABLET PO (08:21)
[2022-09-28] MEDS: VERAPAMIL HCL ER 120 MG TABLET 240 MG PO (08:22)
--- NOTE | 2022-09-28 11:22 | WPDPN ---
Progress Note: A&P Assessment and Plan (1) Hypoxia: Code(s): R09.02 - Hypoxemia Status: Acute Assessment and Plan: oxygen per nc mointor pulse ox denies shortness of breath Wean from oxygen (2) Influenza A: Code(s): J10.1 - Influenza due to other identified influenza virus with other respiratory manifestations Status: Acute Assessment and Plan: weakness PT/OT IV steroids Tamiflu not indicated onset to long ago (3) Acute UTI: Code(s): N39.0 - Urinary tract infection, site not specified Status: Acute Assessment and Plan: IV anibiotic IVF Patel catheter adequate intake and output DC IVF DC IV antibiotics today this is day 4 (4) Hypokalemia: Code(s): E87.6 - Hypokalemia Status: Acute Assessment and Plan: Monitor and replenish electrolytes resolved (5) Pain initiated by coughing: Code(s): R52 - Pain, unspecified Status: Acute Assessment and Plan: Continue to monitor for pain PRn pain medicatin (6) Weakness: Code(s): R53.1 - Weakness Status: Acute Assessment and Plan: PT/OT evaluate and treat refuses to get out of bed (7) Malaise and fatigue: Code(s): R53.81 - Other malaise; R53.83 - Other fatigue Status: Acute Assessment and Plan: Refuses to get out of bed questioned patient on depression in which she denies may be lingering from influenza. Subjective Date/time seen: 09/28/22 11:22 Interval history: Patient got up to bedside commode yesterday after a long conversation she remains on nasal cannula as she does drop at time and when she falls asleep. Patient will try and get up today although she is not happy. Today is the last day of her IV antibiotics and the plan is to swing and or go to jail in the morning ,WEan from oxygen as well Exam Narrative: GENERALPale-appearing, well-nourished, and in no acute distress. HEAD:Normocephalic, atraumatic. EYES: PERRLA and EOMI. ENT: Nares clear, no rhinorrhea or epistaxis. Mucous membranes moist. CHEST: Clear to diminished auscultation. No respiratory distress. HEART: Regular rate and rhythm. Normal peripheral pulses. ABDOMEN: Soft, nontender, nondistended, normal active bowel sounds. EXTREMITIES: Normal range of motion. No edema. weak SKIN: Warm, dry, no rash. cyst noted on head multiple NEURO: No focal deficits. Alert and oriented x3. Objective Data Vital Signs Vital Signs: Vital Signs - 24 hr 09/27/22 11:36 09/27/22 11:39 09/27/22 16:00 Temperature 97.4 F L Pulse Rate 107 H 85 78 Respiratory Rate 16 Blood Pressure 107/71 Pulse Oximetry 87 L 91 96 Oxygen Delivery Room Air High Flow Nasal Cannula Nasal Cannula Oxygen Flow Rate 1 1 09/27/22 19:43 09/27/22 20:58 09/28/22 00:00 Temperature 97.4 F L Pulse Rate 78 85 85 Respiratory Rate 16 16 Blood Pressure 108/62 Pulse Oximetry 96 94 Oxygen Delivery Nasal Cannula Nasal Cannula Oxygen Flow Rate 2 2 09/28/22 07:42 09/28/22 08:19 Temperature 97.1 F L Pulse Rate 98 78 Respiratory Rate 16 Blood Pressure 128/57 L Pulse Oximetry 94 Oxygen Delivery Nasal Cannula Oxygen Flow Rate 1 Intake/Output Intake/Output: Intake & Output 09/25/22 09/26/22 09/27/22 09/28/22 23:59 23:59 23:59 23:59 Intake Total 3256.667 3430 2996.667 720 Output Total 1025 1650 2475 600 Balance 2231.667 1780 521.667 120 Meds/Results Medications: Active Medications Generic Name Dose Route Start Last Admin Trade Name Freq PRN Reason Stop Dose Admin Acetaminophen 650 mg 09/24/22 07:45 Acetaminophen 325 Mg Tablet PO Q4H PRN Mild Pain (1-3) or Fever Hydrocodone Bitart/Acetaminophen 1 tab 09/24/22 07:45 Hydrocodone/Acetaminophen (*Crx) 5-325 Mg Tablet PO Q4H PRN Moderate Pain (4-6) Benzonatate 100 mg 09/25/22 22:00 09/28/22 05:25 Benzonatate 100 Mg Capsule PO 100 mg Q8HR FRANDY Adminis
[2022-09-28 11:56] LABS: Glucose Point of Care 257 mg/dl (65-105)
[2022-09-28 17:06] LABS: Glucose Point of Care 121 mg/dl (65-105)
[2022-09-28] MEDS: MONTELUKAST SODIUM 10 MG TABLET PO (21:06)
[2022-09-28] MEDS: INSULIN GLARGINE (*BKC) 100 UNITS/ML 15 UNITS SUB-Q (21:10)
[2022-09-28 21:11] LABS: Glucose Point of Care 129 mg/dl (65-105)
[2022-09-29] MEDS: BENZONATATE 100 MG CAPSULE PO (05:40)
[2022-09-29 05:56] VITALS: O2SAT 94
--- NOTE | 2022-09-29 06:12 | PC.NURSE ---
Pt states she feels like her AM Tessalon amber is stuck in her throat. SPO2 at 97% on 1L/NC. Pt able to eat 4 oz of pudding, and is drinking fluids without difficulty, still states she feels the pill is stuck. Conference Interpreter reassured her that her O2 levels were good and pill was not blocking airway, pill may be stuck in esophagus if at all. Pt states understanding.
[2022-09-29 07:20] VITALS: BP 135/62; PULSE 92; RESP 20; TEMP 36.1; O2SAT 93
[2022-09-29 08:15] LABS: Glucose Point of Care 140 mg/dl (65-105)
[2022-09-29 09:09] VITALS: PULSE 92
[2022-09-29] MEDS: POTASSIUM CHLORIDE 10 MEQ TABLET PO (09:09)
[2022-09-29] MEDS: hydroCHLOROthiazide 25 MG TABLET PO (09:09)
[2022-09-29] MEDS: VERAPAMIL HCL ER 120 MG TABLET 240 MG PO (09:09)
[2022-09-29] MEDS: FUROSEMIDE INJ 20 MG/2 ML VIAL IV PUSH (09:09)
[2022-09-29] MEDS: SOTALOL HCL 40 MG TABLET PO ×2 (09:09→20:49)
[2022-09-29] MEDS: SPIRONOLACTONE 25 MG TABLET PO (09:09)
--- NOTE | 2022-09-29 11:14 | WPDPN ---
Progress Note: A&P Assessment and Plan (1) Hypoxia: Code(s): R09.02 - Hypoxemia Status: Acute Assessment and Plan: oxygen per nc mointor pulse ox denies shortness of breath Wean from oxygen (2) Influenza A: Code(s): J10.1 - Influenza due to other identified influenza virus with other respiratory manifestations Status: Acute Assessment and Plan: weakness PT/OT IV steroids Tamiflu not indicated onset to long ago (3) Acute UTI: Code(s): N39.0 - Urinary tract infection, site not specified Status: Acute Assessment and Plan: IV anibiotic IVF Patel catheter adequate intake and output DC IVF DC IV antibiotics today this is day 4 (4) Hypokalemia: Code(s): E87.6 - Hypokalemia Status: Acute Assessment and Plan: Monitor and replenish electrolytes resolved (5) Pain initiated by coughing: Code(s): R52 - Pain, unspecified Status: Acute Assessment and Plan: Continue to monitor for pain PRn pain medicatin (6) Weakness: Code(s): R53.1 - Weakness Status: Acute Assessment and Plan: PT/OT evaluate and treat refuses to get out of bed (7) Malaise and fatigue: Code(s): R53.81 - Other malaise; R53.83 - Other fatigue Status: Acute Assessment and Plan: Refuses to get out of bed questioned patient on depression in which she denies may be lingering from influenza. Subjective Date/time seen: 09/29/22 11:14 Interval history: Patient is more arousable and takable still not wanting to do much but did sit on the side of bed with therapy today and she is is looking better. Patient is eating and drinking she has remained a febrile and vitals are stable at this time she currently is waiting for long-term placement as she remains on oxygen at this time will continue to monitor she does not tolerate no oxygen. Patient states she is coughing more now we will order cough medication for her that is liquid and not the pill Exam Narrative: GENERALPale-appearing, well-nourished, and in no acute distress. HEAD:Normocephalic, atraumatic. EYES: PERRLA and EOMI. ENT: Nares clear, no rhinorrhea or epistaxis. Mucous membranes moist. CHEST: Clear to diminished auscultation. No respiratory distress. HEART: Regular rate and rhythm. Normal peripheral pulses. ABDOMEN: Soft, nontender, nondistended, normal active bowel sounds. EXTREMITIES: Normal range of motion. No edema. weak SKIN: Warm, dry, no rash. cyst noted on head multiple NEURO: No focal deficits. Alert and oriented x3. Objective Data Vital Signs Vital Signs: Vital Signs - 24 hr 09/28/22 16:00 09/28/22 19:49 09/28/22 21:06 Temperature 97.4 F L Pulse Rate 85 85 80 Respiratory Rate 16 16 Blood Pressure 120/57 L Pulse Oximetry 94 94 Oxygen Delivery Nasal Cannula Nasal Cannula Oxygen Flow Rate 1 1 09/28/22 23:59 09/29/22 07:20 09/29/22 09:09 Temperature 97.8 F 97 F L Pulse Rate 80 92 92 Respiratory Rate 16 20 Blood Pressure 117/77 135/62 Pulse Oximetry 95 93 Oxygen Delivery Nasal Cannula Nasal Cannula Oxygen Flow Rate 1 1 Intake/Output Intake/Output: Intake & Output 09/26/22 09/27/22 09/28/22 09/29/22 23:59 23:59 23:59 23:59 Intake Total 3430 2996.667 1680 730 Output Total 1650 2475 2050 725 Balance 1780 521.667 -370 5 Meds/Results Medications: Active Medications Generic Name Dose Route Start Last Admin Trade Name Freq PRN Reason Stop Dose Admin Acetaminophen 650 mg 09/24/22 07:45 Acetaminophen 325 Mg Tablet PO Q4H PRN Mild Pain (1-3) or Fever Hydrocodone Bitart/Acetaminophen 1 tab 09/24/22 07:45 Hydrocodone/Acetaminophen (*Crx) 5-325 Mg Tablet PO Q4H PRN Moderate Pain (4-6) Benzonatate 100 mg 09/25/22 22:00 09/29/22 05:40 Benzonatate 100 Mg Capsule PO 100 mg Q8HR FRANDY Administration Dextrose 12.5 gm 09/24/22 09:40 09/25/22 17:14 Dextr
[2022-09-29 11:51] LABS: Glucose Point of Care 201 mg/dl (65-105)
[2022-09-29] MEDS: AZITHROMYCIN 250 MG TABLET 500 MG PO (13:28)
[2022-09-29 16:00] VITALS: BP 125/80; PULSE 89; RESP 18; TEMP 36; O2SAT 93
[2022-09-29 17:16] LABS: Glucose Point of Care 144 mg/dl (65-105)
[2022-09-29] MEDS: INSULIN GLARGINE (*BKC) 100 UNITS/ML 15 UNITS SUB-Q (20:48)
[2022-09-29 20:49] VITALS: PULSE 72
[2022-09-29] MEDS: MONTELUKAST SODIUM 10 MG TABLET PO (20:49)
[2022-09-29 20:53] LABS: Glucose Point of Care 159 mg/dl (65-105)
[2022-09-30] VITALS (7 sets, daily range): BP systolic 106–135; BP diastolic 56–82; PULSE 72–85; RESP 18; TEMP 35.6–36.4; O2SAT 94–97
[2022-09-30 07:59] LABS: Glucose Point of Care 92 mg/dl (65-105)
[2022-09-30] MEDS: POTASSIUM CHLORIDE 10 MEQ TABLET PO (09:22)
[2022-09-30] MEDS: SPIRONOLACTONE 25 MG TABLET PO (09:22)
[2022-09-30] MEDS: VERAPAMIL HCL ER 120 MG TABLET 240 MG PO (09:22)
[2022-09-30] MEDS: hydroCHLOROthiazide 25 MG TABLET PO (09:22)
[2022-09-30] MEDS: FUROSEMIDE 20 MG TABLET PO (09:22)
[2022-09-30] MEDS: SOTALOL HCL 40 MG TABLET PO ×2 (09:22→21:24)
--- NOTE | 2022-09-30 09:49 | WPDPN ---
Progress Note: A&P Assessment and Plan (1) Hypoxia: Code(s): R09.02 - Hypoxemia Status: Acute Assessment and Plan: oxygen per nc mointor pulse ox denies shortness of breath Wean from oxygen (2) Influenza A: Code(s): J10.1 - Influenza due to other identified influenza virus with other respiratory manifestations Status: Acute Assessment and Plan: weakness PT/OT IV steroids Tamiflu not indicated onset to long ago (3) Acute UTI: Code(s): N39.0 - Urinary tract infection, site not specified Status: Acute Assessment and Plan: IV anibiotic IVF Patel catheter adequate intake and output DC IVF DC IV antibiotics today this is day 4 Antibiotic course completed (4) Hypokalemia: Code(s): E87.6 - Hypokalemia Status: Acute Assessment and Plan: Monitor and replenish electrolytes resolved (5) Pain initiated by coughing: Code(s): R52 - Pain, unspecified Status: Acute Assessment and Plan: Continue to monitor for pain PRn pain medicatin (6) Hyponatremia: Code(s): E87.1 - Hypo-osmolality and hyponatremia Status: Acute Assessment and Plan: Salt tabs labs pending Subjective Date/time seen: 09/30/22 09:49 Interval history: Patient in the bed she informed me she worked with therapy today and she is not feeling sick but she is feel tired per patient. Patient does not want to get out of the bed as she is tired. Patient lung are course and she is still coughing. Exam Narrative: GENERALPale-appearing, well-nourished, and in no acute distress. HEAD:Normocephalic, atraumatic. EYES: PERRLA and EOMI. ENT: Nares clear, no rhinorrhea or epistaxis. Mucous membranes moist. CHEST: Course lung sound auscultation. No respiratory distress. HEART: Regular rate and rhythm. Normal peripheral pulses. ABDOMEN: Soft, nontender, nondistended, normal active bowel sounds. EXTREMITIES: Normal range of motion. No edema. weak SKIN: Warm, dry, no rash. cyst noted on head multiple NEURO: No focal deficits. Alert and oriented x3.not motivated Objective Data Vital Signs Vital Signs: Vital Signs - 24 hr 09/29/22 16:00 09/29/22 20:49 09/30/22 00:00 Temperature 96.8 F L 97.6 F Pulse Rate 89 72 75 Respiratory Rate 18 18 Blood Pressure 125/80 135/65 Pulse Oximetry 93 94 Oxygen Delivery Nasal Cannula Nasal Cannula Oxygen Flow Rate 1 1 09/30/22 07:35 09/30/22 09:22 Temperature 96.4 F L Pulse Rate 85 85 Respiratory Rate 18 Blood Pressure 125/61 Pulse Oximetry 97 Oxygen Delivery Nasal Cannula Oxygen Flow Rate 1 Intake/Output Intake/Output: Intake & Output 09/27/22 09/28/22 09/29/22 09/30/22 23:59 23:59 23:59 23:59 Intake Total 2996.667 1680 1300 680 Output Total 7382 2050 1725 200 Balance 527.445 -552 -222 480 Meds/Results Medications: Active Medications Generic Name Dose Route Start Last Admin Trade Name Freq PRN Reason Stop Dose Admin Acetaminophen 650 mg 09/24/22 07:45 Acetaminophen 325 Mg Tablet PO Q4H PRN Mild Pain (1-3) or Fever Hydrocodone Bitart/Acetaminophen 1 tab 09/24/22 07:45 Hydrocodone/Acetaminophen (*Crx) 5-325 Mg Tablet PO Q4H PRN Moderate Pain (4-6) Benzonatate 100 mg 09/25/22 22:00 09/30/22 06:37 Benzonatate 100 Mg Capsule PO Not Given Q8HR FRANDY Dextrose 12.5 gm 09/24/22 09:40 09/25/22 17:14 Dextrose 50% 25 Gm/50 Ml Syringe IV PUSH 12.5 gm PRN PRN Administration Hypoglycemia Protocol Furosemide 20 mg 09/30/22 09:00 09/30/22 09:22 Furosemide 20 Mg Tablet PO 20 mg DAILY FRANDY Administration Glucagon 1 mg 09/24/22 09:40 Glucagon For Inj 1 Mg Vial IM PRN PRN Hypoglycemia Protocol Glucose 15 gm 09/24/22 09:40 Glucose Oral Gel 15 Gm Of Glucse In 37.5 Gm Tube PO PRN PRN Hypoglycemia Protocol Guaifenesin/Dextromethorphan 5 ml 09/30/22 09:00
[2022-09-30 10:01] LABS: Hematocrit 44.4 % (35.0-42.0); Hemoglobin 12.6 g/dL (11.7-13.8); Mean Corpuscular HGB Conc 28.4 g/dL (32.0-36.0); Mean Corpuscular Hemoglobin 28.9 pg (27.0-31.0); Mean Corpuscular Volume 101.8 fL (78.0-102.0); Mean Platelet Volume 10.3 fl (9.2-11.8); Platelet Count Result 219 K/mm3 (150-420); Red Blood Count 4.36 M/mm3 (4.20-5.40); Red Cell Distribution Width 13.4 % (11.6-14.4); White Blood Count 9.2 K/mm3 (4.8-10.8)
[2022-09-30 10:13] LABS: Anion Gap 2 mmol/L (8-16); Blood Urea Nitrogen 11 mg/dL (7-18); Calcium 8.5 mg/dL (8.5-10.1); Carbon Dioxide 38 mmol/L (21-32); Chloride 95 mmol/L (98-108); Estimated CRCL calculation 32 ml/min; Estimated Glomerular Filt Rate 52; Glucose 246 mg/dL (70-99); Osmolality Calculated 287 mOsm/kg (285-295); Potassium 3.8 mmol/L (3.5-5.1); Sodium 135 mmol/L (136-145)
[2022-09-30 11:46] LABS: Glucose Point of Care 199 mg/dl (65-105)
[2022-09-30] MEDS: guaiFENesin/DEXTROMETHORPHAN 5 ML UDC PO (16:49)
[2022-09-30 16:51] LABS: Glucose Point of Care 112 mg/dl (65-105)
--- NOTE | 2022-09-30 20:00 | PC.NURSE ---
Nurse discussed turning and positioning with patient and patient says she does not want nurse to be doing that and that she'll call nurse if she needs help repositioning.
[2022-09-30] MEDS: MONTELUKAST SODIUM 10 MG TABLET PO (21:25)
[2022-09-30 21:28] LABS: Glucose Point of Care 157 mg/dl (65-105)
[2022-09-30] MEDS: INSULIN GLARGINE (*BKC) 100 UNITS/ML 15 UNITS SUB-Q (21:30)
[2022-10-01 07:45] LABS: Hematocrit 36.9 % (35.0-42.0); Hemoglobin 11.7 g/dL (11.7-13.8); Mean Corpuscular HGB Conc 31.7 g/dL (32.0-36.0); Mean Corpuscular Hemoglobin 30.8 pg (27.0-31.0); Mean Corpuscular Volume 97.1 fL (78.0-102.0); Mean Platelet Volume 9.9 fl (9.2-11.8); Platelet Count Result 206 K/mm3 (150-420); Red Cell Distribution Width 13.5 % (11.6-14.4); White Blood Count 9.5 K/mm3 (4.8-10.8)
[2022-10-01 07:52] LABS: Glucose Point of Care 94 mg/dl (65-105)
[2022-10-01 08:00] VITALS: BP 114/57; PULSE 75; PULSE 83; RESP 14; RESP 16; TEMP 36.2; O2SAT 95; O2SAT 98
[2022-10-01] MEDS: VERAPAMIL HCL ER 120 MG TABLET 240 MG PO (08:00)
[2022-10-01] MEDS: POTASSIUM CHLORIDE 10 MEQ TABLET PO (08:10)
[2022-10-01 09:20] VITALS: PULSE 87
[2022-10-01] MEDS: SPIRONOLACTONE 25 MG TABLET PO (09:20)
[2022-10-01] MEDS: hydroCHLOROthiazide 25 MG TABLET PO (09:20)
[2022-10-01] MEDS: FUROSEMIDE 20 MG TABLET PO (09:20)
[2022-10-01] MEDS: SOTALOL HCL 40 MG TABLET PO (09:20)
--- NOTE | 2022-10-01 10:16 | PM.DS ---
DS: Admitting Diagnosis Discharge Date 10/01/2022 Admitting Diagnosis pneumonia, influenza, weakness DS: Discharge Diagnosis Discharge Diagnosis (1) Hypoxia: Code(s): R09.02 - Hypoxemia Status: Acute Assessment and Plan: oxygen per tn mointor pulse ox denies shortness of breath Wean from oxygen discharge date patient will discharge with supplementary oxygen to keep sats above 90% if needed and SNIFF (2) Influenza A: Code(s): J10.1 - Influenza due to other identified influenza virus with other respiratory manifestations Status: Acute Assessment and Plan: weakness PT/OT IV steroids Tamiflu not indicated onset to long ago (3) Acute UTI: Code(s): N39.0 - Urinary tract infection, site not specified Status: Acute Assessment and Plan: IV anibiotic IVF Patel catheter adequate intake and output DC IVF DC IV antibiotics today this is day 4 Antibiotic course completed (4) Hypokalemia: Code(s): E87.6 - Hypokalemia Status: Acute Assessment and Plan: Monitor and replenish electrolytes resolved (5) Pain initiated by coughing: Code(s): R52 - Pain, unspecified Status: Acute Assessment and Plan: Continue to monitor for pain PRn pain medicatin DS: Summary Hospital Course Hospital Course: ?This is a 82-year-old female who presented to the hospital with 4 days of coughing up yellow-greenish sputum not feeling very well filling short of breath was found to be satting 89% on room air with a respiratory rate of 24 heart rate of 98 patient was found to have some pneumonia as well as influenza.? Patient has a past medical history of hypokalemia congestive heart failure, hyponatremia patient required some oxygen at 2 L which brought her up to 94% she was started on azithromycin and Rocephin for urinary tract infection as well patient had been feeling weak had not been eating had not gotten out of bed . patient will discharge to a SNF today. The patient denies SOB, CP, palpitation, extremity numbness, lightheadedness, dizziness, constipation, diarrhea, chills, or fever. Discharge instructions reviewed with patient, as well as provided in writing per nursing staff. The instructions also include specific and strict return/GO TO THE ER as well as f/u information. All questions have been answered, and the patient and/or family deny any further questions with discharge and discharge plan. Time Spent with Patient Time attestation: Total time spent providing and/or coordinating discharge services: Exam Narrative: GENERAL:Ill, Pale-appearing, well-nourished, and in no acute distress. HEAD:Normocephalic, atraumatic. EYES: PERRLA . ENT: Nares clear, no rhinorrhea or epistaxis. Mucous membranes moist. CHEST: wheezes and diminished to auscultation. No respiratory distress. HEART:Irregular Regular rate and rhythm. . Normal peripheral pulses. ABDOMEN: Soft, nontender, nondistended, normal active bowel sounds. EXTREMITIES: Normal range of motion. SKIN: Warm, dry, no rash. NEURO: No focal deficits. Alert and oriented x3. DS: Data Data Completed and Pending Labs on day of discharge: Labs from last 24 hours 10/01/22 10/01/22 09/30/22 07:47 07:40 21:23 WBC 9.5 RBC 3.80 L Hgb 11.7 Hct 36.9 MCV 97.1 MCH 30.8 MCHC 31.7 L RDW 13.5 Plt Count 206 MPV 9.9 POC Capillary Glucose 94 157 H 09/30/22 09/30/22 16:46 11:41 WBC RBC Hgb Hct MCV MCH MCHC RDW Plt Count MPV POC Capillary Glucose 112 H 199 H Discharge Plan Discharge Attending physician on discharge: Geovany Pierce Discharging Clinician: Golden Whyte Anticipated Discharge Date/Time: 10/01/22 10:08 Patient Disposition: SNF Activity: as tolerated Diet: diabetic Discharge Instructions: Follow-up primary care physician in 1-2 weeks take all medication as prescribed Take pres
[2022-10-01 11:30] VITALS: O2SAT 97
--- NOTE | 2022-10-01 12:29 | PC.NURSE ---
Pt discharged to [facility]. Transported by [facility]. Pt discharge instructions faxed to facility as well as being call by this RN to [facility].
--- NOTE | 2022-10-02 13:02 | PC.NURSE ---
[facility] nurse states they received and understood the discharge instructions.
== END 2022-10-01 11:20 ==
LOC: CHSED 05:22 → CHS2ND 08:10
PROVIDERS: Nurse Practitioner; Nurse Practitioner Family; Admitting Provider Internal Medicine; Emergency Provider Emergency Medicine; PCP Internal Medicine; Visit Provider Internal Medicine
DX: J10.1 Influenza due to other identified influenza virus with other respiratory manifestations (principal); N39.0 Urinary tract infection, site not specified; I48.20 Chronic atrial fibrillation, unspecified; I50.9 Heart failure, unspecified; E87.6 Hypokalemia; E87.1 Hypo-osmolality and hyponatremia; E11.9 Type 2 diabetes mellitus without complications; R09.02 Hypoxemia; Z79.4 Long term (current) use of insulin; Z20.822 Contact with and (suspected) exposure to COVID-19
CPT/HCPCS: 36415; 71045; 80048; 80053; 81001; 82948; 83880; 85025; 85027; 86140; 87077; 87086; 87088; 87186; 87637; 96361; 96365; 96366; 96374; 96375; 96376; 97110; 97161; 97165; 97530; 97535; 99285; A9270; G0378; J0456; J0696; J1815; J1940; J7030

== ENCOUNTER 2022-10-22 12:41 | Outpatient (CLI) | payer MEDICARE, SELFPAY ==
--- NOTE | 2022-10-22 12:58 | ECG_ITS ---
Measurements Intervals [place] Rate: 76 P: NV: 0 QRS: 7 QRSD: 89 T: 90 QT: 333 QTc: 375 Interpretive Statements ATRIAL FIBRILLATION POSSIBLE ANTERIOR MYOCARDIAL INFARCTION , OF INDETERMINATE AGE [30 ms Q WAVE IN V3/V4, OR R < 0.2 mV IN V4] NONSPECIFIC T-WAVE ABNORMALITY ABNORMAL ECG NO PREVIOUS ECG AVAILABLE FOR COMPARISON Electronically Signed On 10-23-2022 10:13:06 PATTERN FILER by Celio Jha M.D.
[2022-10-22 13:09] LABS: Basophils Absolute Auto 0.05 K/mm3 (0.00-0.10); Basophils Percent Auto 0.5 % (0.0-1.0); Eosinophils Absolute Auto 0.07 K/mm3 (0.02-0.50); Eosinophils Percent Auto 0.7 % (1.0-6.0); Hematocrit 41.5 % (35.0-42.0); Hemoglobin 13.3 g/dL (11.7-13.8); Immature Granulocyte Absolute 0.04 K/mm3 (0.00-0.00); Immature Granulocyte Percent A 0.4 % (0.0-0.0); Lymphocytes Absolute Auto 1.83 K/mm3 (1.10-4.50); Lymphocytes Percent Auto 19.1 % (18.0-42.0); Mean Corpuscular Hemoglobin 30.7 pg (27.0-31.0); Mean Corpuscular Volume 95.8 fL (78.0-102.0); Mean Platelet Volume 10.2 fl (9.2-11.8); Monocytes Percent Auto 7.3 % (2.0-11.0); Neutrophils Absolute Auto 6.9 K/mm3 (1.7-7.2); Platelet Count Result 276 K/mm3 (150-420); Red Blood Count 4.33 M/mm3 (4.20-5.40); Red Cell Distribution Width 13.9 % (11.6-14.4); White Blood Count 9.6 K/mm3 (4.8-10.8)
[2022-10-22 13:51] LABS: Alanine Aminotransferase 12 U/L (14-59); Albumin Level 3.3 g/dL (3.4-5.0); Alkaline Phosphatase 50 U/L (46-116); Anion Gap 4 mmol/L (8-16); Aspartate Amino Transferase 11 U/L (15-37); Bilirubin,Total 0.5 mg/dL (0.00-1.00); Blood Urea Nitrogen 26 mg/dL (7-18); Calcium 8.8 mg/dL (8.5-10.1); Carbon Dioxide 36 mmol/L (21-32); Chloride 97 mmol/L (98-108); Estimated Glomerular Filt Rate 51; Free T3 2.23 pg/mL (2.18-3.98); Free T4 Free Thyroxine 1.06 ng/dL (0.76-1.46); Glucose 118 mg/dL (70-99); NT Pro B Type Natriuretic Pept 2117 pg/mL (0-450); Osmolality Calculated 289 mOsm/kg (285-295); Potassium 3.7 mmol/L (3.5-5.1); Sodium 137 mmol/L (136-145); Total Protein 7.3 g/dL (6.4-8.2)
== END 2022-10-22 12:42 | disposition home or self-care (01) ==
LOC: CHSLAB 12:44
PROVIDERS: PCP Internal Medicine; Visit Provider Internal Medicine
DX: I48.91 Unspecified atrial fibrillation (principal); R94.31 Abnormal electrocardiogram [ECG] [EKG]; I50.9 Heart failure, unspecified
CPT/HCPCS: 36415; 80053; 83735; 83880; 84439; 84443; 84481; 85025; 93005

== ENCOUNTER 2022-11-03 14:14 | Outpatient (CLI) | payer MEDICARE, SELFPAY ==
--- NOTE | 2022-11-03 01:00 | ECHO_ITS ---
Patient Info Name: Salma Nichols Age: 82 years : 1940 Gender: Female Ht: 62 in Wt: 142 lbs BSA: 1.69 m2 HR: 56 bpm BP: 124 / 57 mmHg Heart Rhythm: Atrial Fibrillation Technical Quality: Fair Exam Date: 11/03/2022 3:13 PM Exam Location: [facility] Patient Status: Outpatient Admit Date: 11/03/2022 Staff Ordering Physician: Douglas Potter MD [employer] Deckhand: Sil Che RDCS Attending Provider: Douglas Potter MD Exam Type: CA echo doppler color flow Study Info Indications - afib Complete two-dimensional, color flow and Doppler transthoracic echocardiogram is performed. Summary 1. Complete two-dimensional, color flow and Doppler transthoracic echocardiogram is performed. 2. Left ventricular chamber dimension is normal. 3. Left ventricular systolic function is normal, estimated at 65-70%. 4. There is mildly increased left ventricular wall thickness. 5. The left ventricular diastolic function is grade III diastolic dysfunction. 6. E/e' 20 is elevated. 7. There is moderate aortic valve sclerosis. 8. The mitral valve has moderately calcified annulus. 9. There is mild mitral valve regurgitation. 10. There is mild to moderate tricuspid valve regurgitation. 11. Moderate pulmonary hypertension, estimated pulmonary arterial systolic pressure is 56 mmHg. 12. There is trace pulmonic regurgitation. Left Ventricle E/e' 20 is elevated. Left ventricular chamber dimension is normal. Left ventricular systolic function is normal, estimated at 65-70%. There is mildly increased left ventricular wall thickness. The left ventricular diastolic function is grade III diastolic dysfunction. Right Ventricle Right ventricular systolic function is normal and with normal TAPSE 2.2 cm. Right ventricular chamber dimension is normal. Left Atria Left atrial chamber dimension is normal. Right Atria Right atrial chamber dimension is normal. Aortic Valve The aortic valve is trileaflet. There is moderate aortic valve sclerosis. There is no aortic valve stenosis. There is no aortic valve regurgitation. Pulmonic Valve There is trace pulmonic regurgitation. Mitral Valve The mitral valve has moderately calcified annulus. There is no mitral valve stenosis. There is mild mitral valve regurgitation. Tricuspid Valve There is mild to moderate tricuspid valve regurgitation. Moderate pulmonary hypertension, estimated pulmonary arterial systolic pressure is 56 mmHg. Pericardium/Pleural There is no pericardial effusion. Inferior Vena Cava Normal inferior vena cava with >50% collapse upon inspiration consistent with normal right atrial pressure, 5 mmHg. Aorta The aortic root size at the sinus of Valsalva is normal. Pericardium Name Value Normal Pericardium 2D/MM Pericardial Effusion Diastole (MM) 2.3 cm Left Ventricular Outflow Tract Name Value Normal LVOT 2D LVOT Diameter 2.0 cm LVOT Doppler
== END 2022-11-03 14:15 | disposition home or self-care (01) ==
PROVIDERS: PCP Internal Medicine; Visit Provider Internal Medicine
DX: I48.0 Paroxysmal atrial fibrillation (principal); I08.3 Combined rheumatic disorders of mitral, aortic and tricuspid valves; I27.20 Pulmonary hypertension, unspecified
CPT/HCPCS: 93306

== ENCOUNTER 2023-05-04 14:47 | Outpatient (CLI) | payer MEDICARE, SELFPAY ==
--- NOTE | ~2023-05-04 | XR_ITS ---
EXAMINATION: XR chest 2V Exam Date/Time: 05/04/2023 15:10 CDT HISTORY: Pneumonia, CHF, cough, sob Comparison: 09/24/2022, 08/27/2021. RESULT: Lines, tubes, and devices: Multiple suture lines in the right lung. Lungs and pleura: Ill-defined, somewhat nodular, spiculated appearing opacity in the right upper ceci g. Lungs otherwise clear. Cardiomediastinal silhouette: Right pleural scarring. Other: No acute osseous or upper abdominal finding. IMPRESSION: Ill-defined, nodular opacity in the right upper lung, recommend low-dose noncontrast CT of the chest for further evaluation. Reviewed, dictated and finalized at location K. IMPRESSION: Ill-defined, nodular opacity in the right upper lung, recommend low-dose noncon trast CT of the chest for further evaluation.
[2023-05-04 15:18] LABS: Basophils Absolute Auto 0.07 K/mm3 (0.00-0.10); Basophils Percent Auto 0.4 % (0.0-1.0); Eosinophils Absolute Auto 0.06 K/mm3 (0.02-0.50); Eosinophils Percent Auto 0.4 % (1.0-6.0); Hematocrit 39.3 % (35.0-42.0); Hemoglobin 12.9 g/dL (11.7-13.8); Immature Granulocyte Absolute 0.07 K/mm3 (0.00-0.00); Immature Granulocyte Percent A 0.4 % (0.0-0.0); Lymphocytes Absolute Auto 2.37 K/mm3 (1.10-4.50); Lymphocytes Percent Auto 14.7 % (18.0-42.0); Mean Corpuscular HGB Conc 32.8 g/dL (32.0-36.0); Mean Corpuscular Hemoglobin 31.2 pg (27.0-31.0); Mean Corpuscular Volume 95.2 fL (78.0-102.0); Mean Platelet Volume 10.6 fl (9.2-11.8); Monocytes Absolute Auto 1.11 K/mm3 (0.10-0.90); Monocytes Percent Auto 6.9 % (2.0-11.0); Neutrophils Absolute Auto 12.4 K/mm3 (1.7-7.2); Neutrophils Percent Auto 77.2 % (50.0-70.0); Platelet Count Result 375 K/mm3 (150-420); Red Blood Count 4.13 M/mm3 (4.20-5.40); Red Cell Distribution Width 11.9 % (11.6-14.4); White Blood Count 16.1 K/mm3 (4.8-10.8)
[2023-05-04 15:40] LABS: Alanine Aminotransferase 7 U/L (14-59); Albumin Level 3.4 g/dL (3.4-5.0); Alkaline Phosphatase 54 U/L (46-116); Anion Gap 9 mmol/L (8-16); Aspartate Amino Transferase 16 U/L (15-37); Bilirubin,Total 0.9 mg/dL (0.00-1.00); Blood Urea Nitrogen 40 mg/dL (7-18); CRP 2.5 mg/dL (0.0-0.9); Calcium 9.1 mg/dL (8.5-10.1); Carbon Dioxide 33 mmol/L (21-32); Chloride 95 mmol/L (98-108); Estimated Glomerular Filt Rate 33; Glucose 140 mg/dL (70-99); NT Pro B Type Natriuretic Pept 673 pg/mL (0-450); Osmolality Calculated 295 mOsm/kg (285-295); Potassium 4.5 mmol/L (3.5-5.1); Sodium 137 mmol/L (136-145); Total Protein 7.8 g/dL (6.4-8.2)
== END 2023-05-04 14:48 | disposition home or self-care (01) ==
LOC: CHSLAB 14:49
PROVIDERS: PCP Internal Medicine; Visit Provider Internal Medicine
DX: J18.9 Pneumonia, unspecified organism (principal); E11.9 Type 2 diabetes mellitus without complications; I50.9 Heart failure, unspecified
CPT/HCPCS: 36415; 71046; 80053; 83880; 85025; 86140